=== PATIENT | female | born 1975 | race Caucasian/White ===

== ENCOUNTER 2024-02-22 19:31 | Emergency (ER) | payer OTHER, SELFPAY ==
[2024-02-22 19:33] VITALS: BP 108/79
--- NOTE | 2024-02-22 20:21 | ED.GENMED ---
History of Present Illness
<Yoana Rahman PA-C - Last Filed: 02/22/24 23:10>
General
Chief Complaint: DVT/Possible Blood Clot
Source: patient
Exam Limitations: none
Time Seen by Provider: 02/22/24 19:38
Nursing documentation reviewed up to this point in time: agreed with
History of Present Illness
History of Present Illness:
Patient is a 48-year-old female presenting to the emergency department with atraumatic pain and swelling of right lower leg. Patient states that she woke up Friday morning with significant swelling in her right calf. Throughout the day Friday she
was able to elevate leg and swelling seem to improve by Friday. She also reports significant pain in her right popliteal and right calf, worse with weightbearing. She does note that she feels there is some bruising/redness behind her right knee
and is concerned for possible blood clot. Patient denies any associated fevers, chills, numbness/tingling in right lower leg. Patient denies any recent bug bite or rashes.
However�patient does note that prior to swelling in her right leg she did feel that there was some pain in her right knee for the days leading up.
Patient does report a family history of clotting disorders. No personal history of blood clots or clotting disorders.
Review of Systems
<Yoana Rahman PA-C - Last Filed: 02/22/24 23:10>
Review of Systems
Allergies reviewed?: Yes
All Other Systems: ROS reviewed and negative except as documented in HPI and ROS
Phy Exam
<Yoana Rahman PA-C - Last Filed: 02/22/24 23:10>
Physical Exam
Physical Exam:
Vitals: Patient's vital signs are stable. Afebrile
General: Patient is well appearing, no acute distress
Skin: Warm and dry, no rashes or lesions
Head: Normocephalic, atraumatic
Throat: Protecting airway
Neck: Normal ROM, no cervical spine tenderness
Cardiac: Regular rate
Pulm: No apparent respiratory distress
Abdomen: Nondistended
Extremities: Small right knee effusion. 1+ nonpitting edema of right lower extremity around right ankle. Tenderness palpation along right popliteal and right proximal calf with minimal overlying erythema. No palpable mass or significant warmth.
Palpable DP and PT pulses in right lower extremity. Good range of motion of right knee.
Neuro: Grossly intact
Psychiatric: Normal affect.
Course
<Yoana Rahman PA-C - Last Filed: 02/22/24 23:10>
Orders/Labs/Results
Orders:
Orders
02/22/24 20:02
US Legs, Right [US Periph Venous LOWER Ext RT] Urgent
Comment:
Reason For Exam: pain/swelling/redness right popliteal/ calf
Vital Signs
Initial and Last Documented VS:
Initial Vital Signs
Temp Pulse Resp BP Pulse Ox
98.4 F 95 18 108/79 96
02/22/24 19:33 02/22/24 19:33 02/22/24 19:33 02/22/24 19:33 02/22/24 19:33
Last Documented Vital Signs
Temp Pulse Resp BP Pulse Ox
98.4 F 76 14 96/69 98
02/22/24 19:33 02/22/24 22:16 02/22/24 22:16 02/22/24 22:16 02/22/24 22:16
<Rg Latif MD - Last Filed: 02/22/24 22:06>
Orders/Labs/Results
Orders:
Orders
02/22/24 20:02
US Legs, Right [US Periph Venous LOWER Ext RT] Urgent
Comment:
Reason For Exam: pain/swelling/redness right popliteal/ calf
Vital Signs
Initial and Last Documented VS:
Initial Vital Signs
Temp Pulse Resp BP Pulse Ox
98.4 F 95 18 108/79 96
02/22/24 19:33 02/22/24 19:33 02/22/24 19:33 02/22/24 19:33 02/22/24 19:33
Last Documented Vital Signs
Temp Pulse Resp BP Pulse Ox
98.4 F 76 14 96/69 98
02/22/24 19:33 02/22/24 22:16 02/22/24 22:16 02/22/24 22:16 02/22/24 22:16
<Yoana Rahman PA-C - Last Filed: 02/22/24 23:10>
MDM/Problems Addressed
Differential Diagnosis Includes:
Not limited to: DVT, bakers cyst, inflammatory arthritis (lyme, gout), osteoarthritis, doubt septic arthritis
MDM/Problems Addressed:
48-year-old female presenting with atraumatic right lower extremity pain and swelling for the past 48 hours. No associated fevers or chills. Swelling somewhat improved although significant pain in right popliteal/right calf and unable to bear
weight. Family history of clotting disorder, no other DVT risk factors. Vital stable. Exam as above. Differential broad at this time although considerations include Jay's cyst, inflammatory arthritis, DVT given family history. Lower
suspicion for infectious joint given right knee without warmth or erythema, patient is afebrile. Will screen with ultrasound of right lower extremity. If ultrasound nondiagnostic�plan for possible knee joint aspiration for fluid analysis.
Chronic conditions affecting care:
N/A
Acute Exacerbation and/or Progression of Chronic Illness:
N/A
<Yoana Rahman PA-C - Last Filed: 02/22/24 23:10>
*Radiology
Radiology exam reviewed: radiology read reviewed
*Pulse Oximetry
Patient hypoxic: no
*EKG
Interpreted by ED Provider?: NA
*Engine Head Repairer Interpretation
Rate: Engine Head Repairer- N/A
*Critical Care Note
Total Time (30-74mins, 75-104mins- exclusive of procedures): Not Applicable
<Yoana Rahman PA-C - Last Filed: 02/22/24 23:10>
Update Note
Update Note:
Update: Right lower extremity ultrasound shows findings consistent with Bakers cyst, likely recently ruptured. This would explain patient's symptoms. Patient does have crutches at home that she will use will wrap an Tutu bandage and recommend ice,
elevation, NSAIDs for pain. Patient will follow with PCP/Ortho if needed. Return precaution discussed at length. Patient seen by attending physician.
ED Attending Note
<Yoana Rahman PA-C - Last Filed: 02/22/24 23:10>
-
Portions of this chart may have been created with voice recognition software.� Occasional wrong word or��sound alike� substitutions may have occurred due to the inherent limitations of voice recognition software.
<Rg Latif MD - Last Filed: 02/22/24 22:06>
ED Attending Note
Patient seen and examined by attending physician: Yes
ED Attending Note:
I have seen and evaluated the patient with a [id number] encounter. I have spoken to the advance practicer provider and involved in the medical history, the physical exam, medical decision making.
Evaluation and management service: agree unless noted differently below.
Results interpretation: agree unless noted differently below.
Focused HPI: 48-year-old female with no significant chronic medical issues presents to the emergency room for evaluation of right lower leg pain. Patient reports symptoms started about a week ago with right knee pain. She says that then she
started have some swelling in the right calf which has improved but not completely resolved. Pain has worsened over the past 24 hours mostly posterior knee and calf. Came to the ER for evaluation. No trauma or injury reported. No other
complaints including fever history of DVT/PE but she does have family history of 'clotting disorder.' No recent long flight/travel, no exogenous estrogen.
Physical exam: Awake alert not in distress. Vital signs normal. She has trace edema around the right ankle but no significant lower leg edema. She has small right knee effusion. She has full active range of motion of the right knee. She has
tenderness in the popliteal region as well as along the posterior calf. Good strong pulses DP PT popliteal.
Medical Decision Makin-year-old female presents with atraumatic right knee and lower leg pain and some slight swelling which has improved. Exam as above. Sent for an ultrasound which confirms diagnosis of Jay's cyst which fits with her
clinical picture. Recommended Tylenol/Motrin, Tutu wrap, rest, PCP follow-up.
Discharge Plan
Departure
Patient Disposition: Home (Routine Discharge)
Date of Disposition: 02/22/24
Time of Disposition: 21:58
Patient with high blood pressure during this ER visit?: No
Condition: Good
Covid-19: Not Applicable
Discharge Problem:
Jay's cyst, ruptured
Instructions: Jay's Cyst (DC)
Referrals:
CHERY JOHNSON MD [Family Provider] -
Philip Reyes MD [Active] - As needed
Activity Restrictions/Additional Instructions:
RETURN TO THE EMERGENCY DEPARTMENT WITH FEVER, CHILLS, SIGNIFICANT WORSENING IN PAIN, REDNESS, OR SWELLING OF RIGHT KNEE/LOWER LEG, NUMBNESS/TINGLING IN RIGHT LOWER LEG, OR ANY OTHER CONCERNS
-As discussed�you should keep your right knee wrapped in Tutu bandage and elevate as often as possible. Apply ice to right knee. You can take Motrin and/or Tylenol as needed for discomfort.
-Use crutches as needed for weightbearing over the next few days and then begin to weight-bear as tolerated.
Monitor your symptoms closely and return to the emergency department with any acute worsening/new symptoms
Interventions
Interventions:
*Risk Screen - Suicide Last Done: 02/22/24 21:20
*General Assessment Last Done: 02/22/24 19:33
*Neglect/Abuse Screening Last Done: 02/22/24 21:20
ED- Fall Risk Assessment Last Done: 02/22/24 22:20
*ED COVID-19 Vaccine History Last Done: 02/22/24 21:20
*Nursing Disposition Last Done: 02/22/24 22:20
ED- Cardiac Assessment Last Done: 02/22/24 21:20
ED- Pulmonary Assessment Last Done: 02/22/24 21:20
ED-Peripheral Vascular Assessment Last Done: 02/22/24 21:20
ED-Skin Assessment Last Done: 02/22/24 21:20
Discharge Date and Time
Discharge Date/Time: 02/22/24 22:20
Print Language: HUNGARIAN
[2024-02-22 22:16] VITALS: BP 96/69
== END 2024-02-22 22:20 | disposition home or self-care (01) ==
LOC: EMR 19:31
PROVIDERS: EMERGENCY PHYSICIAN Emergency Medicine; FAMILY PHYSICIAN Family Medicine
DX: M66.0 Rupture of popliteal cyst (principal)
CPT/HCPCS: 99284; 93971